=== PATIENT | male | born 1940 | race Caucasian/White ===

== ENCOUNTER 2018-10-24 05:55 | Inpatient (IN) | payer MEDICARE, OTHER ==
--- NOTE | 2018-10-18 12:38 | Diagnostic Imaging Report ---
EXAMINATION: PA and lateral views of the chest. COMPARISON: None CLINICAL HISTORY: Preoperative exam for prostate surgery DISCUSSION: Left subclavian central venous port catheter tip projects over the low superior vena cava. Lungs are well-inflated. Calcified granuloma in the left lower lobe. No airspace consolidation, pleural effusion, or pneumothorax. Atherosclerotic calcification of the thoracic aorta. Normal heart size. No pulmonary edema. No acute osseous abnormality. IMPRESSION: No acute cardiopulmonary abnormalities. Signed by: Dr. Pieter Baptiste M.D. on 10/18/2018 12:35 PM
[2018-10-22 16:19] LABS: BASOPHILS % 0.6 % (0.0-1.0); EOSINOPHILS # (AUTO) 0.2 (0.0-0.4); EOSINOPHILS % 2.5 % (0.0-6.0); HEMATOCRIT 35.1 % (38.2-49.6); HEMOGLOBIN 11.6 g/dL (14.0-18.0); LYMPHOCYTES # (AUTO) 2.3 (1.0-3.2); LYMPHOCYTES % 35.4 % (18.0-39.1); MEAN CORPUSCULAR HEMOGLOBIN 30.7 pg (28-32); MEAN CORPUSCULAR VOLUME 92.9 fL (81-99); MONOCYTES # (AUTO) 0.5 (0.2-0.8); MONOCYTES % 8.2 % (4.4-11.3); NEUTROPHILS # (AUTO) 3.5 (2.1-6.9); PLATELET COUNT 293 x10e3/uL (140-360); RED BLOOD COUNT 3.78 x10e6/uL (4.3-5.7); RED CELL DISTRIBUTION WIDTH 16.3 % (11.7-14.4)
[2018-10-22 16:42] LABS: ALANINE AMINOTRANSFERASE 7 IU/L (0-55); ALBUMIN/GLOBULIN RATIO 0.8 (0.8-2.0); ALKALINE PHOSPHATASE 88 IU/L (40-150); ANION GAP 12.6 mmol/L (8-16); BLOOD UREA NITROGEN 14 mg/dL (7-26); BUN/CREATININE RATIO 17 (6-25); CALCIUM 9.1 mg/dL (8.4-10.2); CARBON DIOXIDE 27 mmol/L (22-29); CHLORIDE 99 mmol/L (98-107); CREATININE, SERUM 0.81 mg/dL (0.72-1.25); EST GLOMERULAR FILTRATION RATE > 60 ML/MIN (60-); GLUCOSE 106 mg/dL (74-118); POTASSIUM 3.6 mmol/L (3.5-5.1); SODIUM 135 mmol/L (136-145)
[~2018-10-24] VITALS: Ht 182.9 cm; Wt 66.3 kg
[~2018-10-24 05:55] MED LIST: ASPIR 8181 MG PO; ELIQUIS PO; FLOMAX0.4 MG PO; LOPRESSOR25 MG PO; NORVASC5 MG PO
--- OUTSIDE RECORDS SUMMARY | 2018-10-24 06:08 | XMS REPORT | Summary of Care ---
Author Author Urgent Care [facility] Address Unknown Phone Unavailable Encounter CIRO Connell(FIN) [id number] Date(s): 06/23/18 - 06/23/18 [facility] [address] [place] [address]- [phone] Discharge Disposition: Home or Self Care Attending Physician: Angelita Mcdonough MD Vital Signs Most recent to 1 oldest [Reference Range]: Height 185.42 cm (06/23/18 11:02 AM) Temperature Oral 98.1 DegF [96.4-99.1 DegF] (06/23/18 11:02 AM) Blood Pressure 167/97 mmHg [90-140/60-90 mmHg] *HI* (06/23/18 11:02 AM) Respiratory Rate 16 BRMIN [14-20 BRMIN] (06/23/18 11:02 AM) Weight 75.909 kg (06/23/18 11:02 AM) Body Mass Index 22.08 m2 (06/23/18 11:02 AM) Problem List Condition Effective Dates Status Health Status Informant At high risk for Active glaucoma(Confirmed) B-cell Resolved lymphoma(Confirmed) [place] (hard of Active hearing)(Confirmed) Cancer of Active appendix(Confirmed) Allergies, Adverse Reactions, Alerts Substance Reaction Severity Status NKDA Active Medications fluticasone nasal 0.05 mg/inh spray 2 spray, NASAL, Daily, in each nostril, # 16 gm, 1 Refill(s), Pharmacy: [facility] [id number] Start Date: 06/23/18 Status: Ordered predniSONE 20 mg oral tablet 20 mg=1 tab, PO, Daily, X 5 day, # 5 tab, 0 Refill(s), Pharmacy: [facility] [id number] Start Date: 06/23/18 Stop Date: 06/28/18 Status: Ordered Results No data available for this section Immunizations No data available for this section Procedures Procedure Date Related Diagnosis Body Site Status Colonoscopy 06/18/18 Completed Biopsy1 Completed Partial colectomy Completed 1appe Social History Social History Type Response Substance Abuse Use: None. Alcohol Never Smoking Status Never smoker; Exposure to Tobacco Smoke None; Cigarette Smoking Last 365 Days No; Reg Smoking Cessation Counseling No entered on: 06/23/18 Assessment and Plan No data available for this section
--- OUTSIDE RECORDS SUMMARY | 2018-10-24 06:08 | XMS REPORT | Clinical Summary ---
Author Author [facility] Address Unknown Phone Unavailable Care Team Providers Care Vp Site Name Role Phone Brett Berrios MD PCP Allergies No Known Allergies Medications End Date Status Medication Sig Dispensed Refills Start Date 09/21/2018 cefdinir (OMNICEF) 300 MG Take 1 14 capsule 0 capsule capsule (300 9 mg total) by mouth 2 (two) times a day for 7 days. Active Problems Not on file Encounters Care Team Description Date Type Specialty Dereje Estrada MD Acute UTI (Primary Dx); Hematuria, unspecified type 09/13/2018 Emergency Emergency Medicine - 09/14/2018 after 10/23/2017 Social History Date Tobacco Use Types Packs/Day Years Used Never Assessed Sex Assigned at Date Recorded Not on file Industry Job Start Date Occupation Not on file Not on file Not on file Travel End Travel History Travel Start No recent travel history available. Last Filed Vital Signs Time Taken Vital Sign Reading 09/14/2018 12:58 AM CDT Blood Pressure 143/87 09/14/2018 12:58 AM CDT Pulse 86 09/13/2018 9:21 PM CDT Temperature 35.7 C (96.2 F) 09/14/2018 12:58 AM CDT Respiratory Rate 18 09/14/2018 12:58 AM CDT Oxygen Saturation 97% - Inhaled Oxygen - Concentration 09/13/2018 9:20 PM CDT Weight 68 kg (150 lb) 09/13/2018 9:20 PM CDT Height 182.9 cm (6') 09/13/2018 9:20 PM CDT Body Mass Index 20.34 Plan of Treatment Not on file Procedures Comments Procedure Name Priority Date/Time Associated Diagnosis GRAM STAIN STAT 09/13/2018 11:58 PM CDT URINE CULTURE STAT 09/13/2018 11:58 PM CDT ESTIMATED GFR STAT 09/13/2018 11:45 PM CDT PARTIAL THROMBOPLASTIN STAT 09/13/2018 TIME (PTT) 11:45 PM CDT PROTHROMBIN TIME WITH INR STAT 09/13/2018 11:45 PM CDT BASIC METABOLIC PANEL STAT 09/13/2018 11:45 PM CDT URINALYSIS SCREEN AND STAT 09/13/2018 MICROSCOPY, WITH REFLEX 11:45 PM CDT TO CULTURE HC COMPLETE BLD COUNT STAT 09/13/2018 W/AUTO DIFF 11:45 PM CDT after 10/23/2017 Results * Gram stain (09/13/2018 11:58 PM CDT) Gram stain Many Gram negative rods [place] result Few WBC's [facility] Comment: HOSPITAL Specimen Information Specimen Source: Urine Specimen Site: Clean catch Specimen Urine Performing Organization Address City/State/Zipcode Phone Number [facility] DEPARTMENT OF [address] [place] [address] PATHOLOGY AND GENOMIC MEDICINE [address] * Urine culture (09/13/2018 11:58 PM CDT) Urine culture Mixed dulce 10-4 col/cc (A) [place] isolate Comment: [facility] Specimen Information HOSPITAL Specimen Source: Urine Specimen Site: Clean catch Urine culture Acinetobacter [place] isolate calcoaceticus-Acinetobacter [facility] baumannii [facility] >10-5 cfu/ml The performance characteristics of this assay on this isolate were validated by the Microbiology Laboratory at [facility].This source has not been approved by the U.S. Food and Drug Administration.The results are not intended to be used as the sole means for clinical diagnosis or patient management.The Microbiology Laboratory is authorized under the clinical Laboratory Improvement Amendments of 1988 (CLIA-88) to perform high complexity testing. The performance characteristics of this assay on this isolate were validated by the Microbiology Laboratory at [facility].This source has not been approved by the U.S. Food and Drug Administration.The results are not intended to be used as the sole means for clinical diagnosis or patient management.The Microbiology Laboratory is authorized under the clinical Laboratory Improvement Amendments of 1988 (CLIA-88) to perform high complexity testing. (A) Urine culture Aquiles laura [place] isolate >10-5 cfu/ml [facility] characteristics of this assay on this isolate were validated by the Microbiology Laboratory at [facility].This source has not been approved by the U.S. Food and Drug Administration.The results are not intended to be used as the sole means for clinical diagnosis or patient management.The Microbiology Laboratory is authorized under the clinical Laboratory Improvement Amendments of 1988 (CLIA-88) to perform high complexity testing. (A) Specimen Urine Antibiotic Method Susceptibility Organism Amikacin KB mm: Resistant Acinetobacter calcoaceticus-Acinetobact er baumannii complex Aztreonam KB mm: Susceptible Acinetobacter calcoaceticus-Acinetobact er baumannii complex Cefepime KB mm: Susceptible Acinetobacter calcoaceticus-Acinetobact er baumannii complex Cefoxitin KB mm: Resistant Acinetobacter calcoaceticus-Acinetobact er baumannii complex Ceftazidime KB mm: Susceptible Acinetobacter calcoaceticus-Acinetobact er baumannii complex Ceftriaxone KB mm: Susceptible Acinetobacter calcoaceticus-Acinetobact er baumannii complex Ciprofloxacin KB mm: Susceptible Acinetobacter calcoaceticus-Acinetobact er baumannii complex Gentamicin KB mm: Resistant Acinetobacter calcoaceticus-Acinetobact er baumannii complex Imipenem KB mm: Susceptible Acinetobacter calcoaceticus-Acinetobact er baumannii complex Levofloxacin KB mm: Susceptible Acinetobacter calcoaceticus-Acinetobact er baumannii complex Meropenem KB mm: Susceptible Acinetobacter calcoaceticus-Acinetobact er baumannii complex Piperacillin/Tazobactam KB mm: Susceptible Acinetobacter calcoaceticus-Acinetobact er baumannii complex Tetracycline KB mm: Susceptible Acinetobacter calcoaceticus-Acinetobact er baumannii complex Tobramycin KB mm: Resistant Acinetobacter calcoaceticus-Acinetobact er baumannii complex Trimethoprim/Sulfamethoxazole KB mm: Susceptible Acinetobacter calcoaceticus-Acinetobact er baumannii complex Performing Organization Address City/State/Zipcode Phone Number [place] [phone] [place] [address] PATHOLOGY AND GENOMIC MEDICINE [place] [address] HOSPITAL * Urinalysis screen and microscopy, with reflex to culture (09/13/2018 11:45 PM CDT) Specimen site Clean catch [facility] Color, UA Gbaby [facility] Appearance, UA Cloudy [facility] Specific 1.024 1.001 - 1.035 [place] gravity, UA [facility] pH, UA 5.0 5.0 - 8.5 [facility] Protein, UA 2+ (A) Negative [facility] Glucose, UA Negative Negative [facility] Ketones, UA Negative Negative [facility] Bilirubin, UA Negative Negative [facility] Blood, UA Large (A) Negative [facility] Nitrite, UA Negative Negative [facility] Urobilinogen, Negative <2.[address] [facility] Leukocyte Moderate (A) Negative [place] esterase, UA [facility] Round Many 0 - 1 /HPF [place] epithelial [facility] WBC, UA 61-80 (H) 0 - 1 /HPF [facility] RBC, UA 61-80 (H) 0 - 5 /HPF [facility] Bacteria, UA Trace None seen [facility] Yeast, UA Many (A) [facility] Yeast with None seen [place] pseud[facility] Calcium oxalate Few [place] crystals, [facility] Specimen Urine Performing Organization Address City/State/Zipcode Phone Number [facility] DEPARTMENT [id number] [place] [address] [place] [address] PATHOLOGY AND GENOMIC MEDICINE [address] [place], [place] [id number] [place] [address] * Estimated GFR (09/13/2018 11:45 PM CDT) Pathologist [facility] Estimated GFR 71 mL/min/1.73 m2 [place] [facility]: [facility] rpretation G1 >=90 Normal or high G2 60-89Mildly decreased C5u21-09 Mildly to moderately decreased P1q52-08 Moderately to severely decreased G4 15-29Severely decreased G5 <15Kidney failure The eGFR was calculated using the Chronic Kidney Disease Epidemiology Collaboration (CKD-EPI) equation. Interpretation is based on recommendations of the National Kidney Foundation-Kidney Disease Outcomes Quality Initiative (NKF-KDOQI) published in 2014. Specimen Plasma specimen Performing Organization Address [facility] Phone Number [address] [place] AND [address] * Partial thromboplastin time, activated (09/13/2018 11:45 PM CDT) Pathologist [facility] PTT 36.0 23.0 - 36.0 sec [place] Comment: ANUM ESPINOZA PTT therapeutic range for [facility] unfractionated heparin is 61.0-112.0 seconds which corresponds to Anti-Xa 0.3-0.7 U/ml. Specimen Blood Performing Organization Address [facility] Phone Number [address] [place] AND [address] * Prothrombin time with INR (09/13/2018 11:45 PM CDT) Pathologist [facility] Prothrombin 14.6 (H) 11.5 - 14.5 sec [facility] INR 1.2 [place] Comment: ANUM ESPINOZA The International Normalized [facility] Ratio (INR) is a therapeutic monitoring tool for patients who are stable on oral anticoagulant therapy. An INR of 2.0-3.0 is suggested for deep vein thrombosis/pulmonary embolism. Specimen Blood Performing Organization Address [facility] Phone Number [address] [place] [address] PATH[address] * CBC with platelet and differential (09/13/2018 11:45 PM CDT) WBC 7.07 4.50 - 11.00 k/uL [facility] RBC 3.75 (L) 4.40 - 6.00 m/uL [facility] HGB 11.0 (L) 14.0 - 18.0 g/dL [facility] HCT 34.2 (L) 41.0 - 51.0 % [facility] MCV 91.2 82.0 - 100.0 fL [facility] MCH 29.3 27.0 - 34.0 pg [facility] MCHC 32.2 31.0 - 37.0 g/dL [facility] RDW - SD 60.1 (H) 37.0 - 55.0 fL [facility] MPV 9.5 8.8 - 13.2 fL [facility] Platelet count 293 150 - 400 k/uL [facility] Nucleated RBC 0.00 /100 WBC [facility] Neutrophils 65.2 39.0 - 69.0 % [facility] Lymphocytes 29.6 25.0 - 45.0 % [facility] Monocytes 1.8 0.0 - 10.0 % [facility] Eosinophils 2.8 0.0 - 5.0 % [facility] Basophils 0.3 0.0 - 1.0 % [facility] Specimen Blood Performing Organization Address City/[facility] Phone Number [facility] [place] [phone] [place] [address] [place] [address] PATHOLOGY AND GENOMIC MEDICINE [address] * Basic metabolic panel (09/13/2018 11:45 PM CDT) Sodium 132 (L) 135 - 148 mEq/L [facility] Potassium 3.6 3.5 - 5.0 mEq/L [facility] Chloride 93 (L) 98 - 112 mEq/L [facility] CO2 28 24 - 31 mEq/L [facility] Anion gap 11@ANIO 7 - 15 mEq/L [facility] BUN 26 (H) 8 - 23 mg/dL [facility] Creatinine 1.00 0.70 - 1.20 mg/dL [facility] Glucose 132 (H) 65 - 99 mg/dL [facility] Calcium 9.8 8.8 - 10.2 mg/dL [facility] Specimen Plasma specimen Performing Organization Address City/[facility] Cent[facility] [place] Number [place] [address] [place] [address] PATHOLOGY AND GENOMIC MEDICINE [place] [address] [address] [place] [address] [facility] after 10/23/2017 Insurance Type Payer Benefit Subscriber ID Effective Phone Address Plan / Dates Group HMO AETNA AETNA xxxxxxxxxx [id number] HMO,POS,EP resent O, MC/EC Medicare MEDICARE MEDICARE xxxxxxxxxxx 2003- [place], PART A AND Present [place] Advance Directives Patient has advance care planning documents on file. For more information, vinh vazquez contact: Matt Abbasi [address] [place] [address]
--- OUTSIDE RECORDS SUMMARY | 2018-10-24 06:08 | XMS REPORT | Continuity of Care Document ---
Author Author Abilio homero [facility] Address Unknown Phone Unavailable Problems Problem Status Onset Date Classification Date Reported Comments Source UNK Active 06/13/2018 [facility] At high risk for glaucoma Active Problem 06/25/2018 [facility] B-cell lymphoma Resolved Problem 06/25/2018 [facility] KIVALINA (<span ID="[id number]">Confirmed</span>) Active Problem 06/25/2018 [facility] Cancer of appendix Active Problem 06/25/2018 [facility] Medications Medication Details Route Status Patient Instructions Ordering Provider Order Date Source Fluticasone propionate 0.05 MG/ACTUAT Metered Dose Nasal [place] 2 spray, NASAL, Daily, in each nostril, # 16 gm, 1 Refill(s), Pharmacy: [facility] [id number] Active 06/23/2018 [facility] predniSONE 20 mg oral tablet 20 mg=1 tab, PO, Daily, X 5 day, # 5 tab, 0 Refill(s), Pharmacy: [facility] [id number] Active 06/23/2018 [facility] Allergies, Adverse Reactions, Alerts Substance Category Reaction Severity Reaction type Status Date Reported Comments Source Immunizations Immunization Date Given Site Status Last Updated Comments Source Results Order Name Results Value Reference Range Date Interpretation Comments Source Vital Signs Vital Sign Value Date Comments Source Weight 75.909 06/23/2018 [facility] BMI Calculated 22.08 06/23/2018 [facility] Height 185.42 cm 06/23/2018 [facility] Systolic (mm Hg) 167 06/23/2018 [facility] Diastolic (mm Hg) 97 06/23/2018 [facility] Temperature Oral (F) 98.1 F 06/23/2018 [facility] Respitory Rate 16 06/23/2018 [facility] Encounters Location Location Details Encounter Type Encounter Number Reason For Visit Attending Provider ADM Date DC Date Status Source Outpatient [id number] ANGELITA WEBBER 06/23/2018 Active [facility]patient [id number] Angelita Webber 06/23/2018 06/24/2018 [facility] Procedures Procedure Code Date Perfomer Comments Source Colonoscopy [id number] 06/18/2018 [facility] Biopsy<sup>1</sup> [id number] Partial colectomy [id number] [facility]
--- OUTSIDE RECORDS SUMMARY | 2018-10-24 06:08 | XMS REPORT ---
Author Author [facility] Organization [facility] Address Unknown Phone Unavailable Care Team Providers Care Price Lister Name Role Phone CHRISTELLE STANTON Unavailable Unavailable Payers Payer Name Policy Type Policy Number Effective Date Expiration Date Problems This patient has no known problems. Allergies, Adverse Reactions, Alerts Allergy Name Allergy Type Status Severity Reaction(s) Onset Date Inactive Date Treating Clinician Comments No Known Allergies DA Active U 2018-05-30 00:00:00 No Known Drug Intolerances DA Active U 2013-04-11 00:00:00 Medications This patient has no known medications. Results Test Description Test Time Test Comments Text Results Atomic Results Result Comments CHEST 2 VIEWS 2018-10-18 12:33:[address] [address] Patient Name: NITESH ANNA MR #: [id number] : 1940 Age/Sex: 78/M Req #: [id number] Adm Physician: Ordered by: CHRISTELLE STANTON MD Report #: [id number] Location: OR Room/Bed: Procedure: [id number] DX/CHEST 2 VIEWS Exam Date: 10/18/18 Exam Time: 1200 REPORT STATUS: Signed EXAMINATION: PA and lateral views of the chest. RAN RISON: None CLINICAL HISTORY: Preoperative exam for prostate surgery DISCUSSION: Left subclavian central venous port catheter tip projects over the low superior vena cava. Lungs are well-inflated. Calcified granuloma in the left lower lobe. No airspace consolidation, pleural effusion, or pneumothorax. Atherosclerotic calcification of the thoracic aorta. Normal heart size. No pulmonary edema. No acute osseous abnormality. IMPRESSION: No acute cardiopulmonary abnormalities. Signed by: Dr. Azael Hayward M.D. on 10/18/2018 12:35 PM Dictated By: AZAEL HAYWARD MD 1235 Transcribed By: GLADYS on 10/18/18 1235 COPY TO: CHRISTELLE STANTON MD
[2018-10-24] MEDS ORDERED: PIPER-TAZ 3.375 GM 50 ML ONE (06:26)
[2018-10-24] MEDS ORDERED: GENTAMICIN 80MG/NS 100 ML 200 ML IV ONE (06:26)
[2018-10-24] MEDS ORDERED: BELLADONNA/OPIUM 60 MG SUPP PR ONE ×2 (07:06→09:02)
[2018-10-24] MEDS ORDERED: IOPAMIDOL 610MG/1ML 300 MG/ML VIAL IV ONE (07:06)
[2018-10-24] MEDS ORDERED: FLUCONAZOLE 200 MG/100 ML 100 ML IV ONE (07:37)
[2018-10-24] MEDS ORDERED: DIPHENHYDRAMINE HCL 25 MG CAP PO PRN (09:30)
[2018-10-24] MEDS ORDERED: ACETAMINOPHEN/CODEINE 300MG - 30MG TAB PO PRN (09:30)
[2018-10-24] MEDS ORDERED: BELLADONNA/OPIUM 30 MG SUPP RC PRN (09:30)
[2018-10-24] MEDS ORDERED: ONDANSETRON HCL INJ 2MG/ML 2ML 2 MG/ML VIAL IV PRN (09:30)
[2018-10-24] MEDS ORDERED: FENTANYL CITRATE/PF 100MCG/2 ML INJ ONE (09:50)
--- OUTSIDE RECORDS SUMMARY | 2018-10-24 09:55 | XMS REPORT | Clinical Summary ---
Author Author [facility] Organization [facility] Address Unknown Phone Unavailable Care Team Providers Care Textile Machine Mechanic Name Role Phone Brett Berrios MD PCP [...] CDT) Gram stain Many Gram negative rods Y[facility]UCO[facility] result Few WBC's RASTAFARI Comment: HOSPITAL Specimen Information Specimen Source: Urine Specimen Site: Clean catch Specimen Urine Performing Organization Address City/State/Zipcode Phone Number [facility] DEPARTMENT OF [address] [place] [address] PATHOLOGY AND GENOMIC MEDICINE [address] * Urine culture (09/13/2018 11:58 PM CDT) Urine culture Mixed dulce 10-4 col/cc (A) [place] isolate Comment: RASTAFARI Specimen Information HOSPITAL Specimen Source: Urine Specimen Site: Clean catch Urine culture Acinetobacter [facility] isolate calcoaceticus-Acinetobacter RASTAFARI baumannii [facility] >10-5 cfu/ml The performance characteristics of this assay on this isolate were validated by the Microbiology Laboratory at [facility].This source has not been approved by the U.S. Food and Drug Administration.The results are not intended to be used as the sole means for clinical diagnosis or patient management.The Microbiology Laboratory is authorized under the clinical Laboratory Improvement Amendments of 1988 (CLIA-88) to perform high complexity testing. The performance characteristics of this assay on this isolate were validated by the Microbiology Laboratory at [facility].This source has not been approved by the U.S. Food and Drug Administration.The results are not intended to be used as the sole means for clinical diagnosis or patient management.The Microbiology Laboratory is authorized under the clinical Laboratory Improvement Amendments of 1988 (CLIA-88) to perform high complexity testing. (A) Urine culture Aquiles laura [facility] isolate >10-5 cfu/ml RASTAF[facility]I [facility] characteristics of this assay on this isolate were validated by the Microbiology Laboratory at [facility].This source has not been approved by the [...] complex Performing Organization Address City/State/Zipcode Phone Number [place] [id number] [place] [address] PATHOLOGY AND GENOMIC MEDICINE [place] [address] HOSPITAL * Urinalysis screen and microscopy, with reflex to culture (09/13/2018 11:45 PM CDT) Specimen site Clean catch [facility] Color, UA Gabby [facility] Appearance, UA Cloudy [facility] Specific 1.024 1.001 - 1.035 [facility] gravity, UA [facility] pH, UA 5.0 5.0 - 8.5 [facility] Protein, UA 2+ (A) Negative [facility] Glucose, UA Negative Negative [facility] Ketones, UA Negative Negative [facility] Bilirubin, UA Negative Negative [facility] Blood, UA Large (A) Negative [facility] Nitrite, UA Negative Negative [facility] Urobilinogen, Negative <2.0 [facility] Leukocyte Moderate (A) Negative [facility] esterase, UA [facility] Round Many 0 - 1 /HPF [facility] epithelial [facility] WBC, UA 61-80 (H) 0 - 1 /HPF [facility] RBC, UA 61-80 (H) 0 - 5 /HPF [facility] Bacteria, UA Trace None seen [facility] Yeast, UA Many (A) [facility] Yeast with None seen [facility] [place] Calcium oxalate Few [facility] crystals, [facility] Specimen Urine Performing Organization Address City/State/Zipcode Phone Number [facility] DEPARTMENT [id number] [place] [address] [place] [address] PATHOLOGY AND GENOMIC MEDICINE [address] [place], [place] [id number] [place] [address] * Estimated GFR (09/13/2018 11:45 PM CDT) Pathologist [facility] Estimated GFR 71 mL/min/1.73 m2 [facility] Comment: [facility] rpretation G1 >=90 Normal or high G2 60-89Mildly decreased [id number] Mildly to moderately decreased [id number] Moderately to severely decreased G4 15-29Severely decreased G5 <15Kidney failure The eGFR was calculated using the Chronic Kidney Disease Epidemiology Collaboration (CKD-EPI) equation. Interpretation is based on recommendations of the National Kidney Foundation-Kidney Disease Outcomes Quality Initiative (NKF-KDOQI) published in 2014. Specimen Plasma specimen Performing Organization Address [facility] Phone Number [address] AND [address] * Partial thromboplastin time, activated (09/13/2018 11:45 PM CDT) Pathologist [facility] PTT 36.0 23.0 - 36.0 sec YABUCOA Comment: ANUM ESPINOZA PTT therapeutic range for [facility] unfractionated heparin is 61.0-112.0 seconds which corresponds to Anti-Xa 0.3-0.7 U/ml. Specimen Blood Performing Organization Address [facility] Phone Number [address] * Prothrombin time with INR (09/13/2018 11:45 PM CDT) Pathologist [facility] Prothrombin 14.6 (H) 11.5 - 14.5 sec [facility] INR 1.2 [facility]A Comment: ANUM ESPINOZA The International Normalized [facility] Ratio (INR) is a therapeutic monitoring tool for patients who are stable on oral anticoagulant therapy. An INR of 2.0-3.0 is suggested for deep vein thrombosis/pulmonary embolism. Specimen Blood Performing Organization Address [facility] Phone Number [address] [place] [address] PATH[address] * CBC with platelet and differential (09/13/2018 11:45 PM CDT) WBC 7.07 4.50 - 11.00 k/uL [facility] RBC 3.75 (L) 4.40 - 6.00 m/uL [facility] HGB 11.0 (L) 14.0 - 18.0 g/dL [facility] HCT 34.2 (L) 41.0 - 51.0 % [facility] MCV 91.2 82.0 - 100.0 fL [facility] MCH 29.3 27.0 - 34.0 pg [facility] MCHC 32.2 31.0 - 37.0 g/dL [facility] RDW - SD 60.1 (H) 37.0 - 55.0 fL [facility] MPV 9.5 8.8 - 13.2 fL [facility] Platelet count 293 150 - 400 k/uL [facility] Nucleated RBC 0.00 /100 WBC [facility] Neutrophils 65.2 39.0 - 69.0 % [facility] Lymphocytes 29.6 25.0 - 45.0 % [facility] Monocytes 1.8 0.0 - 10.0 % [facility] Eosinophils 2.8 0.0 - 5.0 % [facility] Basophils 0.3 0.0 - 1.0 % [facility] Specimen Blood Performing Organization Address City/[facility] Phone Number [facility] [place] [id number] [place] [address] [place] [address] PATHOLOGY AND GENOMIC MEDICINE [address] * Basic metabolic panel (09/13/2018 11:45 PM CDT) Sodium 132 (L) 135 - 148 mEq/L [facility] Potassium 3.6 3.5 - 5.0 mEq/L [facility] Chloride 93 (L) 98 - 112 mEq/L [facility] CO2 28 24 - 31 mEq/L [facility] Anion gap 11@ANIO 7 - 15 mEq/L [facility] BUN 26 (H) 8 - 23 mg/dL [facility] Creatinine 1.00 0.70 - 1.20 mg/dL [facility] Glucose 132 (H) 65 - 99 mg/dL [facility] Calcium 9.8 8.8 - 10.2 mg/dL [facility] Specimen Plasma specimen Performing Organization Address City/[facility] Phone [place] [address] [place] [address] PATHOLOGY AND GENOMIC MEDICINE [address] [address] [place] [address] [facility] after 10/23/2017 Insurance Type Payer Benefit Subscriber ID Effective Phone Address Plan / Dates Group HMO AETNA AETNA xxxxxxxxxx [id number] HMO,POS,EP resent O, MC/EC Medicare MEDICARE MEDICARE xxxxxxxxxxx 2003- Y[place], PART A AND Present [place] Advance Directives Patient has advance care planning documents on file. For more information, vinh vazquez contact: Matt Abbasi [address] [place] [address]
[2018-10-24] MEDS ORDERED: FLUCONAZOLE 100 MG/NS 50 ML 50 ML IV SCH (10:00)
[2018-10-24 10:17] LABS: BASOPHILS # (AUTO) 0.1 (0.0-0.1); BASOPHILS % 0.7 % (0.0-1.0); EOSINOPHILS # (AUTO) 0.1 (0.0-0.4); EOSINOPHILS % 1.7 % (0.0-6.0); HEMATOCRIT 33.8 % (38.2-49.6); HEMOGLOBIN 10.9 g/dL (14.0-18.0); LYMPHOCYTES # (AUTO) 2.4 (1.0-3.2); LYMPHOCYTES % 31.4 % (18.0-39.1); MEAN CORPUSCULAR HEMOGLOBIN 30.7 pg (28-32); MEAN CORPUSCULAR HGB CONC 32.2 g/dL (31-35); MEAN CORPUSCULAR VOLUME 95.2 fL (81-99); MONOCYTES # (AUTO) 0.3 (0.2-0.8); MONOCYTES % 3.5 % (4.4-11.3); NEUTROPHILS # (AUTO) 4.7 (2.1-6.9); NEUTROPHILS % 62.4 % (38.7-80.0); PLATELET COUNT 257 x10e3/uL (140-360); RED BLOOD COUNT 3.55 x10e6/uL (4.3-5.7)
--- NOTE | 2018-10-24 10:30 | NUR ---
RECEIVED REPORT FROM ALVIN IN PACU AWAITING FOR PT TO ARRIVE TO UNIT
[2018-10-24 10:34] LABS: ANION GAP 10.5 mmol/L (8-16); BLOOD UREA NITROGEN 16 mg/dL (7-26); BUN/CREATININE RATIO 21 (6-25); CALCIUM 8.9 mg/dL (8.4-10.2); CARBON DIOXIDE 26 mmol/L (22-29); CHLORIDE 103 mmol/L (98-107); CREATININE, SERUM 0.77 mg/dL (0.72-1.25); EST GLOMERULAR FILTRATION RATE > 60 ML/MIN (60-); GLUCOSE 127 mg/dL (74-118); POTASSIUM 3.5 mmol/L (3.5-5.1); SODIUM 136 mmol/L (136-145)
[2018-10-24 10:56] VITALS: BP 136/73
[2018-10-24 11:00] VITALS: BP_SYST 132; BP_SYST 136; BP_DIAS 73; BP_DIAS 80
--- NOTE | 2018-10-24 11:00 | NUR ---
RECEIVED PT TO FLOOR [id number]. HARD OF HEARING SON IS AT BEDSIDE PT C/O PAIN TO PENILE AREA 4/10 STATES AT THIS TIME IS IS TOLERABLE PT AWARE OF PT MANAGEMENT ON EMAR PT IS ON REG DIET REPORTS NAUSEA PT HAS IV FLUIDS TO THE RIGHT FA 20 WITH FLUIDS RUNNINGS (LR) SITE IS CLEAN AND DRY PT HAS A MOHAN (SECURED TO LEG) ON CBI. LEFT OPEN PT IS DRAINING BRIGHT RED COLORED URINE WILL CONTINUE TO MONITOR CLOSELY, SIDE RAILSX2, BED WHEELS LOCKED ,CALL LIGHT IS WITHIN EASY REACH, INSTRUCTED TO CALL FOR ASSISTANCE IF NEEDED
[2018-10-24] MEDS: D5.45%NS/KCL 20MEQ 1,000 ML IV SCH ×2 (11:49→21:03)
[2018-10-24] MEDS ORDERED: PNEUMOCOCCAL VACCINE POLYVALENT 23 MCG/0.5 ML VIAL IM ONE (12:00)
--- NOTE | 2018-10-24 12:05 | NUR ---
UNABLE TO GIVE PNA SHOT PT HAD CHEMO 2 WEEKS AGO
[2018-10-24] MEDS: FLUCONAZOLE 100 MG/NS 50 ML 50 ML IV SCH (13:08)
--- NOTE | 2018-10-24 13:29 | History and Physical ---
CHIEF COMPLAINT: 1. Status post TURP. 2. Gross hematuria. 3. Urinary retention. 4. Enlarged prostate. HISTORY OF PRESENT ILLNESS: The patient is an 78-year-old male with history of hypertension, chronic lower back pain, urinary retention secondary to enlarged prostate. The patient also has history of lymphoma. The patient presented to the hospital after postop with TURP procedures done by Dr. David Sexton. The patient is stable. He has a Tiwari catheter in place. The patient does have gross hematuria. He is comfortable. Pain controlled with pain medication. The patient is otherwise stable at this time. PAST MEDICAL HISTORY: 1. Enlarged prostate with urinary retention. 2. Incomplete urination. 3. Hypertension. 4. History of pulmonary embolism. 5. Anticoagulant therapy. PAST SURGICAL HISTORY: Status post TURP procedures. SOCIAL HISTORY: The patient does not smoke or use alcohol. No recreational drugs. ALLERGIES: NO KNOWN ALLERGIES. HOME MEDICATIONS: Eliquis, Flomax, metoprolol, aspirin, and Norvasc. REVIEW OF SYSTEMS: Hematuria. Postoperative pain. PHYSICAL EXAMINATION: VITAL SIGNS: Temperature is 98, blood pressure 136/73, pulse rate 53, respirations 20. GENERAL: The patient is not in acute distress. He is awake. HEENT: Normocephalic, atraumatic. Anicteric. NECK: Supple grossly. PULMONARY: Diminished breath sounds without any wheezing or rales. CARDIOVASCULAR: Regular rhythm. ABDOMEN: Soft, nontender, no distention. Tiwari catheter in place. Hematuria. EXTREMITIES: No cyanosis or edema. NEUROLOGIC: No gross focal deficit. LABORATORY DATA: Sodium is 136, potassium 3.5, chloride 103, bicarb 26, BUN is 16, creatinine 0.7, glucose 127. WBC 7.5, hemoglobin 10.9, hematocrit 33.8, platelets is 257. IMPRESSION: 1. Status post transurethral resection of the prostate procedures secondary to urinary retention, enlarged prostate. 2. Gross hematuria. 3. Baseline hypertension, stable. 4. Baseline history of pulmonary embolism, on anticoagulant therapy, off anticoagulant therapy for surgical intervention as currently. PLAN: 1. Continue with home medication except for aspirin and Eliquis. 2. Blood pressure medication. 3. Check the patient's laboratory in the morning. 4. Continue with Tiwari catheter care, postoperative care. 5. Pain control. MD JOSE Rudd/KEKE /[id number]
[2018-10-24] MEDS: PIPER-TAZ 3.375 GM 50 ML IV SCH ×2 (13:47→21:24)
[2018-10-24 16:00] VITALS: BP 108/70
[2018-10-24] MEDS: METOPROLOL TARTRATE 25 MG TAB PO SCH (16:08)
[2018-10-24] MEDS: DOCUSATE SODIUM 100 MG CAP PO SCH (17:01)
[2018-10-24] MEDS ORDERED: LIDOCAINE HCL 2% LOCAL INJ 5 ML SDV VIAL INJ ONE (17:47)
[2018-10-24] MEDS ORDERED: ONDANSETRON HCL INJ 2MG/ML 2ML 2 MG/ML VIAL ONE (17:47)
[2018-10-24] MEDS ORDERED: DEXAMETHASONE SOD PHOS INJ 4 MG/ML VIAL ONE (17:47)
[2018-10-24] MEDS ORDERED: SEVOFLURANE INHAL SOLN 250 ML PEN BTL ONE (17:47)
[2018-10-24] MEDS ORDERED: PROPOFOL IV EMULSION 10 MG/ML 20 ML VIAL ONE (17:47)
[2018-10-24] MEDS ORDERED: FUROSEMIDE INJ 10 MG/ML 4 ML VIAL ONE (18:38)
--- NOTE | 2018-10-24 19:20 | NUR ---
REPORT TAKEN FROM AM RN.WALKING ROUNDS DONE.ON CBI.BLOOD COLORED URINE DRAINING.IV FLUID IS DRIPPING.BED LOCKED AND IN LOWEST POSITION.PHONE AN DCALL LIGHT WITHIN REACH.INFORMED TO CALL FOR ASSISTANCE NEEDED.KEEP MONITOR THE PT.
[2018-10-24 20:00] VITALS: BP 104/65
[2018-10-24 21:10] VITALS: BP 104/65
[2018-10-25] VITALS (8 sets, daily range): BP systolic 124–152; BP diastolic 60–81
--- NOTE | 2018-10-25 03:00 | NUR ---
Tolerates the diet.no blood clots noted.stable condition.
[2018-10-25] MEDS: PIPER-TAZ 3.375 GM 50 ML IV SCH ×3 (05:27→21:19)
[2018-10-25 06:04] LABS: BASOPHILS % 0.4 % (0.0-1.0); EOSINOPHILS # (AUTO) 0.1 (0.0-0.4); EOSINOPHILS % 1.3 % (0.0-6.0); HEMATOCRIT 24.1 % (38.2-49.6); HEMOGLOBIN 7.9 g/dL (14.0-18.0); LYMPHOCYTES # (AUTO) 2.1 (1.0-3.2); LYMPHOCYTES % 31.1 % (18.0-39.1); MEAN CORPUSCULAR HEMOGLOBIN 30.9 pg (28-32); MEAN CORPUSCULAR HGB CONC 32.8 g/dL (31-35); MEAN CORPUSCULAR VOLUME 94.1 fL (81-99); MONOCYTES # (AUTO) 0.7 (0.2-0.8); MONOCYTES % 9.8 % (4.4-11.3); NEUTROPHILS # (AUTO) 3.9 (2.1-6.9); NEUTROPHILS % 57.1 % (38.7-80.0); PLATELET COUNT 233 x10e3/uL (140-360); RED BLOOD COUNT 2.56 x10e6/uL (4.3-5.7); RED CELL DISTRIBUTION WIDTH 15.9 % (11.7-14.4)
[2018-10-25 06:17] LABS: ANION GAP 8.9 mmol/L (8-16); BLOOD UREA NITROGEN 16 mg/dL (7-26); BUN/CREATININE RATIO 23 (6-25); CALCIUM 8.4 mg/dL (8.4-10.2); CARBON DIOXIDE 27 mmol/L (22-29); CHLORIDE 104 mmol/L (98-107); CREATININE, SERUM 0.71 mg/dL (0.72-1.25); EST GLOMERULAR FILTRATION RATE > 60 ML/MIN (60-); GLUCOSE 112 mg/dL (74-118); POTASSIUM 3.9 mmol/L (3.5-5.1); SODIUM 136 mmol/L (136-145)
--- NOTE | 2018-10-25 06:53 | NUR ---
Using incentive spirometer.Bed side report given to the oncoming rn.walking rounds done.stable condition.
--- NOTE | 2018-10-25 07:48 | NUR ---
RECEIVED PATIENT AWAKE RESTING IN BED NO SIGNS OF DISTRESS. BED LOWEST POSITION, WHEELS LOCKED, SIDE RAILS X2. CALL LIGHT IN REACH WILL CONTINUE TO MONITOR PATIENT.
[2018-10-25] MEDS: TAMSULOSIN HCL 0.4 MG CAP PO SCH (08:11)
[2018-10-25] MEDS: METOPROLOL TARTRATE 25 MG TAB PO SCH ×2 (08:11→18:03)
[2018-10-25] MEDS: DOCUSATE SODIUM 100 MG CAP PO SCH ×2 (08:11→18:03)
[2018-10-25] MEDS ORDERED: MAGNESIUM/ALUMINUM/SIMETHICONE 30 ML UDC PO PRN (09:00)
--- NOTE | 2018-10-25 09:15 | NUR ---
PATIENT A/O X3, EVEN RESPIRATIONS UNLABORED. VITAL SIGNS STABLE. BOWEL SOUNDS ACTIVE, SKIN INTACT, NO EDEMA. MOHAN IN PLACE WITH CBI. STRAW COLORED URINE. PATIENT AMBULATORY WITH WALKER AND STANDBY ASSIST. CALL LIGHT IN REACH. WILL CONTINUE TO MONITOR PATIENT.
[2018-10-25] MEDS: FAMOTIDINE 20 MG TAB PO SCH ×2 (10:20→18:03)
[2018-10-25] MEDS: IRON-VITAMIN-MINERAL CAPSULE PO SCH ×2 (10:20→18:03)
[2018-10-25] MEDS ORDERED: SODIUM CHLORIDE 0.9% 250ML 250 ML ONE (13:08)
[2018-10-25] MEDS: FLUCONAZOLE 100 MG/NS 50 ML 50 ML IV SCH (13:34)
[2018-10-25] MEDS ORDERED: FENTANYL CITRATE/PF 100MCG/2 ML INJ ONE (18:47)
--- NOTE | 2018-10-25 21:10 | NUR ---
Assisted to ambulate.gas pain voiced.on cbi.no blood clots noted.hematurea.Assessment done.no resp.distress.bed alarm on.bed locked and in lowest position.phone and call light within reach.informed to call for assistance as needed.
--- NOTE | 2018-10-25 22:33 | NUR ---
Encouraged to use ics.irizarry care given.
[2018-10-26] VITALS: BP 130/66
[2018-10-26 04:00] VITALS: BP 120/66
[2018-10-26] MEDS: PIPER-TAZ 3.375 GM 50 ML IV SCH ×2 (05:33→14:00)
[2018-10-26 06:50] LABS: BASOPHILS % 0.5 % (0.0-1.0); EOSINOPHILS # (AUTO) 0.2 (0.0-0.4); EOSINOPHILS % 3.2 % (0.0-6.0); HEMOGLOBIN 7.6 g/dL (14.0-18.0); LYMPHOCYTES # (AUTO) 1.8 (1.0-3.2); LYMPHOCYTES % 30.1 % (18.0-39.1); MEAN CORPUSCULAR HEMOGLOBIN 30.6 pg (28-32); MEAN CORPUSCULAR VOLUME 92.7 fL (81-99); MONOCYTES # (AUTO) 0.7 (0.2-0.8); NEUTROPHILS # (AUTO) 3.3 (2.1-6.9); NEUTROPHILS % 54.7 % (38.7-80.0); PLATELET COUNT 260 x10e3/uL (140-360); RED BLOOD COUNT 2.48 x10e6/uL (4.3-5.7); RED CELL DISTRIBUTION WIDTH 16.2 % (11.7-14.4)
--- NOTE | 2018-10-26 06:50 | NUR ---
REPORT GIVEN TO THE ONCOMING RN.WALKING ROUNDS DONE.STABLE CONDITION.
--- NOTE | 2018-10-26 07:00 | NUR ---
BEDSIDE ROUNDS COMPLETE NO DISTRESS NOTED UPDATED ON POC VOICED UNDERSTANDING, DENIES PAIN AT THIS TIME, MOHAN TO BSD WITH CLEAR YELLOW URINE NOTED, CBI INFUSING NO OTHER CO VOICED CALL LIGHT IN REACH WILL CONTINUE TO MONITOR
[2018-10-26 07:07] LABS: ANION GAP 9.4 mmol/L (8-16); BLOOD UREA NITROGEN 11 mg/dL (7-26); BUN/CREATININE RATIO 15 (6-25); CALCIUM 8.3 mg/dL (8.4-10.2); CARBON DIOXIDE 27 mmol/L (22-29); CHLORIDE 105 mmol/L (98-107); CREATININE, SERUM 0.72 mg/dL (0.72-1.25); EST GLOMERULAR FILTRATION RATE > 60 ML/MIN (60-); GLUCOSE 98 mg/dL (74-118); POTASSIUM 3.4 mmol/L (3.5-5.1); SODIUM 138 mmol/L (136-145)
--- NOTE | 2018-10-26 08:00 | NUR ---
DARVIN, EMMANUEL'D MOHAN PORT CAPPED PER MD INSTRUCTIONS, WILL CONTINUE TO MONITOR
[2018-10-26] MEDS: FAMOTIDINE 20 MG TAB PO SCH (08:20)
[2018-10-26 08:29] VITALS: BP 112/70
--- NOTE | 2018-10-26 08:30 | NUR ---
DISCHARGE DISPOSITION: PATIENT DISCHARGING HOME WITH HOME HEALTH FROM THE FOLLOWING PROVIDER: [facility] (P) [phone] (F) [phone] LIAISON: JOSHUA CANTU CALL IF HOME HEALTH HAS NOT CONTACTED YOU WITHIN [address] [facility] SUPERVISOR: JOSHUA GARNICA [phone]
--- NOTE | 2018-10-26 08:30 | NUR ---
CM SPOKE TO PATIENT AT BEDSIDE REGARDING HOME HEALTH ORDER AND DISCHARGE PLAN. PATIENT INFORMED OF HOME HEALTH SERVICES IN DETAIL. PATIENT AGREE TO HOME HEALTH. PATIENT GIVEN CHOICES FOR IN- NETWORK AND OUT OF NETWORK PROVIDERS. PATIENT CHOSE IN NETWORK- [facility]. PATIENT SIGNED CHOICE LETTER AND CHOICE LETTER PLACED IN CHART. CLINICAL SENT TO [facility]. [facility] (P) [phone] (F) [phone] LIAISON: JOSHUA CANTU PATIENT KNOWS TO CALL CM IF HOME HEALTH HAS NOT CONTACTED THEM WITHIN 24 HOURS POST DISCHARGE.
--- NOTE | 2018-10-26 08:59 | Discharge Summary ---
PRIMARY CARE PHYSICIAN: Dudley Short MD HEALTH INSURANCE SALES AGENT: David Sexton MD FINAL DIAGNOSES: 1. Status post transurethral resection of the prostate procedures done by Dr. David Sexton. 2. Gross hematuria with acute blood loss anemia. Hemoglobin and hematocrit of 7.6 and 23 respectively. SUMMARY: An 78-year-old male with respect to his status post TURP procedure. He did bleed quite a bit after the procedure, but is stable now. Urine is clearing out. The patient was discharged home with home health. He will have irrigation from the home health with the Tiwari care as well. With respect to his anticoagulant therapy, recommend the patient to resume anticoagulant therapy on Monday if the urine is clear. The patient is otherwise stable. The patient is comfortable. Hemocyte Plus one tab twice a day. Colace 100 mg b.i.d. The patient does have a prescription for Tylenol No. [address] per Dr[address] Sexton. The patient to follow up with Dr. Sexton closely. MD JOSE Rudd/KEKE /[id number]
[2018-10-26 09:35] VITALS: BP 112/70
[2018-10-26] MEDS: DOCUSATE SODIUM 100 MG CAP PO SCH (09:51)
[2018-10-26] MEDS: METOPROLOL TARTRATE 25 MG TAB PO SCH (09:52)
[2018-10-26] MEDS: IRON-VITAMIN-MINERAL CAPSULE PO SCH (09:52)
[2018-10-26] MEDS: TAMSULOSIN HCL 0.4 MG CAP PO SCH (09:52)
[2018-10-26] MEDS ORDERED: ONDANSETRON HCL 4 MG ORAL DISINTEGRATING TAB PO PRN (10:00)
[2018-10-26] MEDS ORDERED: LEVAQUIN500 MG PO (12:12)
[2018-10-26] MEDS ORDERED: TYLENOL WITH C1 EACH PO (12:12)
[2018-10-26] MEDS ORDERED: ZOFRAN4 MG PO (12:13)
[2018-10-26] MEDS ORDERED: HEMOCYTE PLUS1 EACH PO (12:13)
[2018-10-26] MEDS ORDERED: COLACE100 MG PO (12:14)
[2018-10-26 12:17] VITALS: BP 133/78
--- NOTE | 2018-10-26 12:38 | NUR ---
PAGED DR STANTON RE: PT CONCERNS OF PINKISH/REDDISH URINE, NEW ORDERS NOTED
--- NOTE | 2018-10-26 12:54 | NUR ---
IMM EXPLAINED TO PT, SIGNED BY PT AND PUT IN CHART COPY OF IMM GIVEN TO PT IN CARE TRANSITION FOLDER
[2018-10-26] MEDS: FLUCONAZOLE 100 MG/NS 50 ML 50 ML IV SCH (13:00)
[2018-10-26] MEDS ORDERED: SODIUM CHLORIDE 0.9% 1000ML 1,000 ML IV SCH (13:00)
--- NOTE | 2018-10-26 13:54 | NUR ---
[facility] CALLED DR. CHRISTELLE STANTON OFFICE @ [phone] AND SPOKE TO SHA THOMPSON MD REGARDING PATIENT DISCHARGE PLAN. HOME HEALTH COMPANIES ARE ABLE TO ADMIT PATIENT BUT UNABLE TO SEE PATIENT TOMORROW DUE TO LOW STAFFING AND HOLIDAY. PATIENT WILL BE SEEN MONDAY PER HOME HEALTH. [facility] CALLED TO INQUIRE IF MD WANTS TO CONTINUE TO DISCHARGE PATIENT OR KEEP PATIENT IN HOUSE AND DISCHARGE MONDAY. [facility] SPOKE WITH DR. STANTON REGARDING ABOVE SITUATION. STATES FOR NURSING TO EDUCATE PATIENT AND DO TEACH BACK THEN SEND HOME TODAY. STATES IT IS OKAY THAT HOME HEALTH WILL SEE PATIENT MONDAY.
--- NOTE | 2018-10-26 16:30 | NUR ---
DAUGHTER AND PATIENT INSTRUCTED ON MOHAN IRRIGATION INSTRUCTED BY DR STANTON ( IF MOHAN NOT DRAINGING),TRANSITIONING BETWEEN LEG BAG AND BEDSIDE BAG, VOICED UNDERSTANDING, DEMONSTRATION SHOWN BACK TO NURSE
[2018-10-26 16:31] VITALS: BP 140/77
== END 2018-10-26 16:43 | disposition home health service (06) | DRG 713 ==
LOC: OR 05:55 → PACU V 09:29 → MED/SURG 10:49
PROVIDERS: ADMIT Urology; ATTEND Urology
PROC: 0VB08ZZ Excision of Prostate, Via Natural or Artificial Opening Endoscopic (ICD-10-PCS; principal; 2018-10-24 07:10)
DX: N40.1 Benign prostatic hyperplasia with lower urinary tract symptoms (principal); D62 Acute posthemorrhagic anemia; R33.8 Other retention of urine; I10 Essential (primary) hypertension; R31.0 Gross hematuria; Z85.72 Personal history of non-Hodgkin lymphomas; Z86.711 Personal history of pulmonary embolism; Z79.01 Long term (current) use of anticoagulants
CPT/HCPCS: 36415; 71046; 74420; 80048; 80053; 83735; 85025; 86850; 86900; 88305; 90732; 93005; J1100; J1450; J1580; J1940; J2001; J2405; J2543; J7030; J7050

== ENCOUNTER 2018-10-30 17:04 | Emergency (ER) | payer MEDICARE, OTHER ==
[~2018-10-30] VITALS: Ht 182.9 cm; Wt 66.2 kg
[~2018-10-30 17:04] MED LIST changes: +COLACE100 MG PO; +HEMOCYTE PLUS1 EACH PO; +LEVAQUIN500 MG PO; +TYLENOL WITH C1 EACH PO; +ZOFRAN4 MG PO
--- OUTSIDE RECORDS SUMMARY | 2018-10-30 17:08 | XMS REPORT | Clinical Summary ---
Author Author [facility] Organization [facility] Address Unknown Phone Unavailable Care Team Providers Care Earthmoving Plant Operator Name Role Phone Brett Berrios MD PCP [...] 09/13/2018 Emergency Emergency Medicine - 09/14/2018 after 10/29/2017 Social History Date Tobacco Use Types Packs/Day [...] 09/13/2018 W/AUTO DIFF 11:45 PM CDT after 10/29/2017 Results * Gram stain (09/13/2018 11:58 PM CDT) Gram stain Many Gram negative rods [facility] result Few WBC's [facility] Comment: HOSPITAL Specimen Information Specimen Source: Urine Specimen Site: Clean catch Specimen Urine Performing Organization Address City/State/Zipcode Phone Number [facility] DEPARTMENT OF [address] [place] [address] PATHOLOGY AND GENOMIC MEDICINE [address] * Urine culture (09/13/2018 11:58 PM CDT) Urine culture Mixed dulce 10-4 col/cc (A) [place] isolate Comment: [facility] Specimen Information HOSPITAL Specimen Source: Urine Specimen Site: Clean catch Urine culture Acinetobacter [facility] isolate calcoaceticus-Acinetobacter [facility] baumannii [facility] >10-5 cfu/ml The performance characteristics of this assay on this isolate were validated by the Microbiology Laboratory at [facility].This source has not been approved by the U.S. Food and Drug Administration.The results are not intended to be used as the sole means for clinical diagnosis or patient management.The Microbiology Laboratory is authorized under the clinical Laboratory Improvement Amendments of 1988 (CLIA-88) to perform high complexity testing. The performance characteristics of this assay on this isolate were validated by the Microbiology Laboratory at [facility].This source has not been approved by the U.S. Food and Drug Administration.The results are not intended to be used as the sole means for clinical diagnosis or patient management.The Microbiology Laboratory is authorized under the clinical Laboratory Improvement Amendments of 1988 (CLIA-88) to perform high complexity testing. (A) Urine culture Aquiles laura [facility] isolate >10-5 cfu/ml [facility] characteristics of this assay on this isolate were validated by the Microbiology Laboratory at [facility].This source has not been approved by the [...] complex Performing Organization Address City/State/Zipcode Phone Number [place] [id number] [place] [address] PATHOLOGY AND GENOMIC MEDICINE [place] [address] HOSPITAL * Urinalysis screen and microscopy, with reflex to culture (09/13/2018 11:45 PM CDT) Specimen site Clean catch [facility] Color, UA Gabby [facility] Appearance, UA Cloudy [facility] Specific 1.024 1.001 - 1.035 [facility] gravity, UA [facility] pH, UA 5.0 5.0 - 8.5 [facility] Protein, UA 2+ (A) Negative [facility] Glucose, UA Negative Negative [facility] Ketones, UA Negative Negative [facility] Bilirubin, UA Negative Negative [facility] Blood, UA Large (A) Negative [facility] Nitrite, UA Negative Negative [facility] Urobilinogen, Negative <2.0 [facility] Leukocyte Moderate (A) Negative [facility] esterase, UA [facility] Round Many 0 - 1 /HPF [facility] epithelial [facility] WBC, UA 61-80 (H) 0 - 1 /HPF [facility] RBC, UA 61-80 (H) 0 - 5 /HPF [facility] Bacteria, UA Trace None seen [facility] Yeast, UA Many (A) [facility] Yeast with None seen [facility] Calcium oxalate Few [facility] crystals, [facility] Specimen Urine Performing Organization Address City/State/Zipcode Phone Number [facility] DEPARTMENT [id number] [place] [address] [place] [address] PATHOLOGY AND GENOMIC MEDICINE [address] [place], [place] [id number] [place] [address] * Estimated GFR (09/13/2018 11:45 PM CDT) Pathologist [facility] Estimated GFR 71 mL/min/1.73 m2 [facility] Comment: [facility] rpretation G1 >=90 Normal or high G2 60-89Mildly decreased [id number] Mildly to moderately decreased [id number] Moderately to severely decreased G4 15-29Severely decreased G5 <15Kidney failure The eGFR was calculated using the Chronic Kidney Disease Epidemiology Collaboration (CKD-EPI) equation. Interpretation is based on recommendations of the National Kidney Foundation-Kidney Disease Outcomes Quality Initiative (NKF-KDOQI) published in 2014. Specimen Plasma specimen Performing Organization Address [facility] Phone Number [address] [place] AND [address] * Partial thromboplastin time, activated (09/13/2018 11:45 PM CDT) Pathologist [facility] PTT 36.0 23.0 - 36.0 sec [facility] Comment: ANUM ESPINOZA PTT therapeutic range for [facility] unfractionated heparin is 61.0-112.0 seconds which corresponds to Anti-Xa 0.3-0.7 U/ml. Specimen Blood Performing Organization Address [facility] Phone Number [address] [place] AND [address] * Prothrombin time with INR (09/13/2018 11:45 PM CDT) Pathologist [facility] Prothrombin 14.6 (H) 11.5 - 14.5 sec [facility] INR 1.2 [facility] Comment: ANUM ESPINOZA The International Normalized [facility] Ratio (INR) is a therapeutic monitoring tool for patients who are stable on oral anticoagulant therapy. An INR of 2.0-3.0 is suggested for deep vein thrombosis/pulmonary embolism. Specimen Blood Performing Organization Address [facility] Phone Number [address] [place] [address] PATHOLOG[address] * CBC with platelet and differential (09/13/2018 11:45 PM CDT) WBC 7.07 4.50 - 11.00 k/uL [facility] RBC 3.75 (L) 4.40 - 6.00 m/uL [facility] HGB 11.0 (L) 14.0 - 18.0 g/dL [facility] HCT 34.2 (L) 41.0 - 51.0 % [facility] MCV 91.2 82.0 - 100.0 fL [facility] MCH 29.3 27.0 - 34.0 pg [facility] MCHC 32.2 31.0 - 37.0 g/dL [facility] RDW - SD 60.1 (H) 37.0 - 55.0 fL [facility] MPV 9.5 8.8 - 13.2 fL [facility] Platelet count 293 150 - 400 k/uL [facility] Nucleated RBC 0.00 /100 WBC [facility] Neutrophils 65.2 39.0 - 69.0 % [facility] Lymphocytes 29.6 25.0 - 45.0 % [facility] Monocytes 1.8 0.0 - 10.0 % [facility] Eosinophils 2.8 0.0 - 5.0 % [facility] Basophils 0.3 0.0 - 1.0 % [facility] Specimen Blood Performing Organization Address City/[facility] Phone Number [facility] [place] [id number] [place] [address] [place] [address] PATHOLOGY AND GENOMIC MEDICINE [address] * Basic metabolic panel (09/13/2018 11:45 PM CDT) Sodium 132 (L) 135 - 148 mEq/L [facility] Potassium 3.6 3.5 - 5.0 mEq/L [facility] Chloride 93 (L) 98 - 112 mEq/L [facility] CO2 28 24 - 31 mEq/L [facility] Anion gap 11@ANIO 7 - 15 mEq/L [facility] BUN 26 (H) 8 - 23 mg/dL [facility] Creatinine 1.00 0.70 - 1.20 mg/dL [facility] Glucose 132 (H) 65 - 99 mg/dL [facility] Calcium 9.8 8.8 - 10.2 mg/dL [facility] Specimen Plasma specimen Performing Organization Address City/[facility] [place] Number [place] [address] [place] [address] PATHOLOGY AND GENOMIC MEDICINE [address] [address] [place] [address] [facility] after 10/29/2017 Insurance Type Payer Benefit Subscriber ID Effective Phone Address Plan / Dates Group HMO AETNA AETNA xxxxxxxxxx [id number] HMO,POS,EP resent O, MC/EC Medicare MEDICARE MEDICARE xxxxxxxxxxx 2003- [facility], PART A AND Present [place] Advance Directives Patient has advance care planning documents on file. For more information, vinh vazquez contact: Matt Abbasi [address] [place] [address]
[2018-10-30 17:59] LABS: BASOPHILS # (AUTO) 0.1 (0.0-0.1); BASOPHILS % 0.9 % (0.0-1.0); EOSINOPHILS # (AUTO) 0.3 (0.0-0.4); EOSINOPHILS % 4.3 % (0.0-6.0); HEMATOCRIT 25.6 % (38.2-49.6); HEMOGLOBIN 8.4 g/dL (14.0-18.0); LYMPHOCYTES # (AUTO) 1.9 (1.0-3.2); LYMPHOCYTES % 26.7 % (18.0-39.1); MEAN CORPUSCULAR HEMOGLOBIN 31.1 pg (28-32); MEAN CORPUSCULAR HGB CONC 32.8 g/dL (31-35); MEAN CORPUSCULAR VOLUME 94.8 fL (81-99); MONOCYTES # (AUTO) 0.7 (0.2-0.8); MONOCYTES % 9.9 % (4.4-11.3); NEUTROPHILS % 57.5 % (38.7-80.0); PLATELET COUNT 325 x10e3/uL (140-360); RED CELL DISTRIBUTION WIDTH 16.9 % (11.7-14.4)
[2018-10-30 18:00] LABS: BILIRUBIN,URINE SMALL (NEGATIVE); CLARITY,URINE CLOUDY (CLEAR); COLOR,URINE RED (YELLOW); KETONES,URINE NEGATIVE (NEGATIVE); LEUKOCYTE ESTERASE ,URINE TRACE (NEGATIVE); NITRITE,URINE NEGATIVE (NEGATIVE); PROTEIN,URINE DIPSTICK 2+ (NEGATIVE); URINE UROBILINOGEN 0.2 mg/dL (0.2 - 1)
[2018-10-30 18:12] LABS: BACTERIA,URINE MODERATE /HPF; RBC,URINE 21-50 /HPF (0-5); WBC,URINE (MAN) 0-5 /HPF (0-5)
[2018-10-30 18:15] LABS: ANION GAP 10.4 mmol/L (8-16); BLOOD UREA NITROGEN 14 mg/dL (7-26); BUN/CREATININE RATIO 20 (6-25); CALCIUM 8.9 mg/dL (8.4-10.2); CARBON DIOXIDE 28 mmol/L (22-29); CHLORIDE 97 mmol/L (98-107); CREATININE, SERUM 0.71 mg/dL (0.72-1.25); EST GLOMERULAR FILTRATION RATE > 60 ML/MIN (60-); GLUCOSE 135 mg/dL (74-118); POTASSIUM 3.4 mmol/L (3.5-5.1); SODIUM 132 mmol/L (136-145)
[2018-10-30 20:24] VITALS: BP 149/64
== END 2018-10-30 20:45 | disposition home or self-care (01) ==
LOC: ER 17:04
DX: N40.1 Benign prostatic hyperplasia with lower urinary tract symptoms (principal); R33.8 Other retention of urine; R31.9 Hematuria, unspecified; I10 Essential (primary) hypertension; Z85.72 Personal history of non-Hodgkin lymphomas; Z79.01 Long term (current) use of anticoagulants; Z79.82 Long term (current) use of aspirin
CPT/HCPCS: 36415; 51700; 80048; 81001; 85025; 87086; 99283